=== PATIENT | male | born 1995 | race Two or more races ===

== ENCOUNTER 2017-11-11 11:01 | Emergency (ER) | payer SELFPAY ==
[2017-11-11 11:25] VITALS: BP 149/93
--- NOTE | 2017-11-11 11:27 | ER Document Report ---
ED Medical Screen (RME) - General Chief Complaint: Depression Stated Complaint: STD CHECK Time Seen by Provider: 11/11/17 11:07 Mode of Arrival: Ambulatory Information source: Patient Notes: 22-year-old male presents with depression, anxiety and concern for STD. I have greeted and performed a rapid initial assessment of this patient. A comprehensive ED assessment and evaluation of the patient, analysis of test results and completion of medical decision making process we will be contacted by additional ED providers. PHYSICAL EXAMINATION: GENERAL: Well-appearing, well-nourished and in no acute distress. HEAD: Atraumatic, normocephalic. EYES: Pupils equal round extraocular movements intact, conjunctiva are normal. ENT: Nares patent NECK: Normal range of motion LUNGS: No respiratory distress Musculoskeletal: Normal range of motion NEUROLOGICAL: Normal speech, normal gait. PSYCH: Normal mood, normal affect. SKIN: Warm, Dry, normal turgor, no rashes or lesions noted. TRAVEL OUTSIDE OF THE [place] IN LAST 30 DAYS: No - HPI Onset: Other Onset/Duration: Intermittent Quality of pain: No pain Associated Symptoms: None Exacerbated by: Denies Relieved by: Denies Similar symptoms previously: Yes Recently seen / treated by doctor: No - Related Data Smoking: Cigarettes Frequency of alcohol use: Occasional Drug Abuse: Marijuana, Prescription drugs Allergies/Adverse Reactions: No Known Allergies Allergy (Verified 11/11/17 11:24) Past Medical History - Social History Chew tobacco use (# tins/day): No Frequency of alcohol use: None Drug Abuse: Marijuana, Prescription drugs Renal/ Medical History: Denies: Hx Peritoneal Dialysis Past Surgical History: Reports: Hx Orthopedic Surgery - left leg Physical Exam - Vital signs Vitals: Temp Pulse Resp BP Pulse Ox 98.6 F 97 16 149/93 H 100 11/11/17 11:24 11/11/17 11:24 11/11/17 11:24 11/11/17 11:24 11/11/17 11:24 Course - Vital Signs Vital signs: Temp Pulse Resp BP Pulse Ox 98.6 F 97 16 149/93 H 100 11/11/17 11:24 11/11/17 11:24 11/11/17 11:24 11/11/17 11:24 11/11/17 11:24 Doctor's Discharge - Discharge Referrals: SHRUTHI ROSE MD [Primary Care Provider] - Follow up as needed
[2017-11-11 12:28] LABS: APPEARANCE,URINE SLIGHTLY-CLOUDY; BILIRUBIN,URINE NEGATIVE (NEGATIVE); COLOR,URINE YELLOW; GLUCOSE, URINE NEGATIVE (NEGATIVE); KETONES,URINE TRACE mg/dL (NEGATIVE); LEUKOCYTE ESTERASE,URINE NEGATIVE (NEGATIVE); NITRITE,URINE NEGATIVE (NEGATIVE); PROTEIN,URINE 30 mg/dL (NEGATIVE); URINE SPECIFIC GRAVITY 1.025
[2017-11-11 12:29] LABS: ABSOLUTE BASOPHILS # (AUTO) 0.1 10^3/uL (0.0-0.2); ABSOLUTE EOSINOPHILS # (AUTO) 0.2 10^3/uL (0.0-0.6); ABSOLUTE LYMPHOCYTES (AUTO) 2.4 10^3/uL (0.5-4.7); ABSOLUTE MONOCYTES (AUTO) 0.7 10^3/uL (0.1-1.4); ABSOLUTE NEUT (AUTO) 4.9 10^3/uL (1.7-8.2); BASOPHILS % (AUTO) 0.9 % (0-2); HEMATOCRIT 46.1 % (37.9-51.0); HEMOGLOBIN 15.6 g/dL (13.5-17.0); LYMPHOCYTES % (AUTO) 29.4 % (13-45); MEAN CORPUSCULAR HEMOGLOBIN 28.3 pg (27.0-33.4); MEAN CORPUSCULAR HGB CONC 33.8 g/dL (32.0-36.0); MEAN CORPUSCULAR VOLUME 84 fl (80-97); MONOCYTES % (AUTO) 8.2 % (3-13); PLATELET COUNT 253 10^3/uL (150-450); RED BLOOD COUNT 5.51 10^6/uL (4.35-5.55); RED CELL DISTRIBUTION WIDTH 13.3 % (11.5-14.0); SEGMENTED NEUTROPHILS % (AUTO) 59.5 % (42-78); TOTAL CELLS COUNTED % (AUTO) 100 %; WHITE BLOOD COUNT 8.2 10^3/uL (4.0-10.5)
[2017-11-11 12:42] LABS: URINE BARBITURATES SCREEN NEGATIVE; URINE BENZODIAZEPINES SCREEN NEGATIVE; URINE COCAINE SCREEN NEGATIVE; URINE MARIJUANA (THC) SCREEN UNCONFIRMED POSITIVE; URINE METHADONE SCREEN NEGATIVE; URINE PHENCYCLIDINE SCREEN NEGATIVE
[2017-11-11 12:48] LABS: ALANINE AMINOTRANSFERASE 30 U/L (21-72); ALBUMIN 4.5 g/dL (3.5-5.0); ALKALINE PHOSPHATASE 78 U/L (38-126); ANION GAP 11 (5-19); ASPARTATE AMINO TRANSFERASE 29 U/L (17-59); BILIRUBIN,DIRECT 0.2 mg/dL (0.0-0.4); BILIRUBIN,TOTAL 0.9 mg/dL (0.2-1.3); BLOOD UREA NITROGEN 15 mg/dL (7-20); CALCIUM 9.7 mg/dL (8.4-10.2); CARBON DIOXIDE 27 mmol/L (22-30); CHLORIDE 104 mmol/L (98-107); GLUCOSE 81 mg/dL (75-110); POTASSIUM 4.8 mmol/L (3.6-5.0); TOTAL PROTEIN 7.6 g/dL (6.3-8.2)
[2017-11-11 12:50] LABS: ACETAMINOPHEN < 10 ug/mL (10-30); ALCOHOL < 10 mg/dL (NONE DETECTED); SALICYLATE < 1.0 mg/dL (2.0-20.0)
[2017-11-11 13:55] LABS: CHLAM PCR NOT DETECTED (NOT DETECT); GON PCR NOT DETECTED (NOT DETECT)
--- NOTE | 2017-11-11 15:43 | ER Document Report ---
ED General - General Chief Complaint: Depression Stated Complaint: STD CHECK Time Seen by Provider: 11/11/17 11:07 Mode of Arrival: Ambulatory Information source: Patient Notes: This is a 22-year-old man that presents to the emergency room with concerns for an STD. He is states that this is made him anxious. He does have a history of depression. He denies any homicidal or suicidal ideations at this time. He denies any cough, fever, abdominal pain, rash or penile discharge. TRAVEL OUTSIDE OF THE [place] IN LAST 30 DAYS: No - HPI Onset: Just prior to arrival Onset/Duration: Sudden Quality of pain: No pain Severity: None Pain Level: Denies Associated symptoms: denies: Chest pain, Fever, Shortness of breath Exacerbated by: Denies Relieved by: Denies Similar symptoms previously: No Recently seen / treated by doctor: No - Related Data Allergies/Adverse Reactions: No Known Allergies Allergy (Verified 11/11/17 11:24) Past Medical History - General Information source: Patient - Social History Smoking Status: Current Every Day Smoker Cigarette use (# per day): Yes - 1 pack per day Chew tobacco use (# tins/day): No Frequency of alcohol use: None Drug Abuse: Marijuana, Prescription drugs Lives with: Family Family History: None Patient has suicidal ideation: No Patient has homicidal ideation: No - Medical History Medical History: Negative Renal/ Medical History: Denies: Hx Peritoneal Dialysis Past Surgical History: Reports: Hx Orthopedic Surgery - left leg Review of Systems - Review of Systems Constitutional: denies: Chills, Fever EENT: No symptoms reported Cardiovascular: No symptoms reported Respiratory: No symptoms reported Gastrointestinal: No symptoms reported Genitourinary: No symptoms reported Male Genitourinary: No symptoms reported Musculoskeletal: No symptoms reported Skin: No symptoms reported Hematologic/Lymphatic: No symptoms reported Neurological/Psychological: No symptoms reported Physical Exam - Vital signs Vitals: Temp Pulse Resp BP Pulse Ox 98.6 F 97 16 149/93 H 100 11/11/17 11:24 11/11/17 11:24 11/11/17 11:24 11/11/17 11:24 11/11/17 11:24 Notes: Physical exam: GENERAL: 22-year-old man, alert and oriented 3, no acute distress HEAD: Atraumatic, normocephalic. EYES: Pupils equal round and reactive to light, extraocular movements intact, sclera anicteric, conjunctiva are normal. ENT: TMs normal, nares patent, oropharynx clear without exudates. Moist mucous membranes. NECK: Normal range of motion, supple without obvious mass or JVD. LUNGS: Breath sounds clear to auscultation bilaterally and equal. No wheezes rales or rhonchi. HEART: Regular rate and rhythm without murmurs, rubs or gallops. ABDOMEN: Soft, normoactive bowel sounds. No tenderness to palpation. No guarding, no rebound. No masses appreciated. EXTREMITIES: Normal range of motion, no pitting or edema. No clubbing or cyanosis. NEUROLOGICAL: Cranial nerves II through XII grossly intact. Normal speech, moving all extremities. PSYCH: Does appear little anxious. No suicidal/homicidal SKIN: Warm, Dry, normal turgor, no rashes or lesions noted. Course - Vital Signs Vital signs: Temp Pulse Resp BP Pulse Ox 98.6 F 97 16 149/93 H 100 11/11/17 11:24 11/11/17 11:24 11/11/17 11:24 11/11/17 11:24 11/11/17 11:24 - Laboratory Result Diagrams: 11/11/17 11:50 11/11/17 11:50 Laboratory results interpreted by me: 11/11/17 11/11/17 11:50 12:10 Urine Protein 30 H Urine Ketones TRACE H Urine Urobilinogen 4.0 H Salicylates < 1.0 L Acetaminophen < 10 L - EKG Interpretation by Sc Rate: Normal Rhythm: NSR - EKG shows normal sinus rhythm with a ventricular rate of 68, no acute ST-T wave changes Discharge - Discharge Clinical Impression: Anxiety Condition: Stable Disposition: HOME, SELF-CARE Additional Instructions: As we discussed, your labs look quite good today. There is no evidence of STDs. I would like you to follow-up with the health department if you have any future concerns first STD. As always, the best protection is to use condoms. [facility] - Follow up as needed (This is the number of the health department)
--- NOTE | 2017-11-11 16:25 | EKG REPORT ---
SEVERITY:- NORMAL ECG - SINUS RHYTHM : Confirmed by: Billy Murrieta MD 11-Nov-2017 16:24:53
--- NOTE | 2017-11-12 19:07 | PSYCHOLOGICAL NOTE ---
Psych Note - Psych Note Psych Note: Reason for Consult: Depression and Anxiety Patient came in for an STD check and shared with the nurse he was anxious about his symptoms. Patient reports that he has been itching and burning for about 2 months now but noticed blood in his stool over the last few days and that is what prompted him to visit the ER. Pt. denies that he is homicidal or suicidal. He is still involved with the GF who may be infected as well. Patient is not interested in counseling at this time. This Clinician gave patient resource information to the [facility] and the [facility]. Patient is alert and oriented to person, place, time and circumstance. Mood is dysphoric. Conversational speech is within normal rate and tone. Eye Contact is good. Attention and concentration are good. Insight, judgment and impulse control are good. Diagnosis 300.02 (F41.1) Generalized Anxiety Disorder Impression/Plan: Patient is cleared from acute pyschiatric services. Patient is not suicidal. Patient is not homicidal. Clinician discussed appropriate coping skills with the patient and was able to identify ways to make healthy decisions in the future. Patient was given local resources for the the [facility] and the [facility]. Dr. Du was consulted and the care management of this patient; attending physician is in agreement with recommendations and disposition.
== END 2017-11-11 15:48 | disposition home or self-care (01) ==
LOC: ER 11:01
DX: F41.1 Generalized anxiety disorder (principal); F17.210 Nicotine dependence, cigarettes, uncomplicated
CPT/HCPCS: 36415; 80053; 80307; 81001; 85025; 87491; 87591; 93005; 93010; 99284

== ENCOUNTER 2017-11-24 20:03 | Emergency (ER) | payer SELFPAY ==
--- NOTE | 2017-11-24 20:26 | ER Document Report ---
ED Medical Screen (RME) - General Chief Complaint: Laceration Stated Complaint: HAND/ARM INJURY Time Seen by Provider: 11/24/17 20:20 Notes: 22-year-old male. No past medical history was angry. Did a elbow slam into a car window to take out some frustration. Piece of glass fell down and cut him on the right distal forearm/wrist area. Actively bleeding. No significant pain except for palpation in the distal wrist area. I have greeted and performed a rapid initial assessment of this patient. A comprehensive ED assessment and evaluation of the patient, analysis of test results and completion of the medical decision making process will be conducted by additional ED providers. TRAVEL OUTSIDE OF THE [place] IN LAST 30 DAYS: No - Related Data Allergies/Adverse Reactions: No Known Allergies Allergy (Verified 11/24/17 20:20) Past Medical History Renal/ Medical History: Denies: Hx Peritoneal Dialysis Past Surgical History: Reports: Hx Orthopedic Surgery - left leg
--- NOTE | 2017-11-24 20:47 | RADIOLOGY REPORT (SQ) ---
EXAM DESCRIPTION: WRIST RIGHT 2 VIEWS COMPLETED DATE/TIME: 11/24/2017 8:38 pm REASON FOR STUDY: laceration and pain after punching window COMPARISON: None. NUMBER OF VIEWS: Two views. TECHNIQUE: AP and lateral radiographic images acquired of the right wrist. LIMITATIONS: None. FINDINGS: MINERALIZATION: Normal. BONES: No acute fracture or dislocation. No worrisome bone lesions. Normal alignment. SOFT TISSUES: No soft tissue swelling. No foreign body. OTHER: No other significant finding. IMPRESSION: NEGATIVE STUDY OF THE RIGHT WRIST. NO RADIOGRAPHIC EVIDENCE OF ACUTE INJURY. TECHNICAL DOCUMENTATION: JOB ID: [id number] [employer]- All Rights Reserved Reading location - [email or web address]
[2017-11-25] MEDS ORDERED: LIDOCAINE 1% INJ-PF (10 MG/ML) 30 ML SDV INJ ONE (02:05)
--- NOTE | 2017-11-25 02:09 | ER Document Report ---
ED General - General Chief Complaint: Laceration Stated Complaint: HAND/ARM INJURY Time Seen by Provider: 11/24/17 20:20 Notes: Patient is a 22-year-old male without past medical history who presents after sustaining a 5 cm laceration over his right wrist. This occurred when he punched a glass window to a car when he was angry. He notes a dull, stinging, constant pain to the affected area. Nothing improves or worsens the pain. No additional injuries. Last tetanus shot greater than 5 years ago. He has not seen his primary care doctor regarding today's concerns. He denies any weakness , numbness or limited range of motion of his hand. He is right-hand dominant. TRAVEL OUTSIDE OF THE [place] IN LAST 30 DAYS: No - Related Data Allergies/Adverse Reactions: No Known Allergies Allergy (Verified 11/24/17 20:20) Past Medical History - General Information source: Patient - Social History Smoking Status: Current Every Day Smoker Frequency of alcohol use: None Drug Abuse: Marijuana Lives with: Parents Family History: Reviewed & Not Pertinent Patient has suicidal ideation: No Patient has homicidal ideation: No Renal/ Medical History: Denies: Hx Peritoneal Dialysis Past Surgical History: Reports: Hx Orthopedic Surgery - left leg Review of Systems - Review of Systems Notes: C Constitutional: Negative for fever. Eyes: Negative for visual changes. ENT: Negative for facial injury Cardiovascular: Negative for chest injury. Respiratory: Negative for shortness of breath. Gastrointestinal: Negative for abdominal injury. Genitourinary: Negative for genital injury Musculoskeletal: Negative for back injury. Skin: Positive for laceration/abrasions. Neurological: Negative for head injury. Physical Exam - Vital signs Vitals: Temp Pulse Resp BP Pulse Ox 98.8 F 99 16 151/80 H 99 11/24/17 20:20 11/24/17 20:20 11/24/17 20:20 11/24/17 20:20 11/24/17 20:20 Interpretation: Hypertensive Notes: PHYSICAL EXAMINATION: GENERAL: Well-appearing, well-nourished and in no acute distress. HEAD: Atraumatic, normocephalic. EYES: sclera anicteric, conjunctiva are normal. ENT: Moist mucous membranes. NECK: Normal range of motion LUNGS: Normal work of breathing HEART: 2+ radial pulses bilaterally, capillary refill less than 1 second in all digits of the right hand EXTREMITIES: no pitting or edema. No cyanosis. RMU motor and sensory distribution intact in the right hand. Full flexion and extension against resistance in all digits of the right hand at the PIP, MCP and DIP. NEUROLOGICAL: No focal neurological deficits. Moves all extremities spontaneously and on command. PSYCH: Normal mood, normal affect. SKIN: Warm, Dry, normal turgor, there is a 5 cm flap type laceration overlying the volar surface of the right wrist Course - Re-evaluation Re-evalutation: 11/25/17 02:06 Patient presents with a 5 cm flap type laceration over the right wrist. RMU motor and sensory to be intact. Full flexion-extension of all digits right hand against resistance. Wound was irrigated and closed without consultation. X-ray confirmed no presence of foreign body. Tetanus was updated. At this time will discharge with return precautions and follow-up recommendations. Verbal discharge instructions given a the bedside and opportunity for questions given. Medication warnings reviewed. Patient is in agreement with this plan and has verbalized understanding of return precautions and the need for primary care follow-up in the next 24-72 hours. - Vital Signs Vital signs: Temp Pulse Resp BP Pulse Ox 98.8 F 99 16 151/80 H 99 11/24/17 20:20 11/24/17 20:20 11/24/17 20:20 11/24/17 20:20 11/24/17 20:20 - Diagnostic Test Radiology reviewed: Image reviewed, Reports reviewed Radiology results interpreted by me: 11/25/17 03:17 Right wrist x-ray: No acute fracture or retained foreign body Procedures - Laceration/Wound Repair Right Wrist Wound length (cm): 5 Wound's Depth, Shape: Superficial, Flap Laceration pre-procedure: Sterile PPE donned Anesthetic type: 1% Lidocaine w/epi Volume Anesthetic (mLs): 3 Wound explored: Clean Irrigated w/ Saline (mLs): 500 Wound Debrided: Minimal Wound Repaired With: Sutures Suture Size/Type: 5:0, Prolene Number of Sutures: 8 Layer Closure?: No Post-procedure wound care: Sterile dressing applied Post-procedure NV exam normal: Yes Complications: No Discharge - Discharge Clinical Impression: Laceration of right wrist Qualifiers: Encounter type: initial encounter Qualified Code(s): S61.511A - Laceration without foreign body of right wrist, initial encounter Condition: Good Disposition: HOME, SELF-CARE Additional Instructions: Please return to your primary doctor, the ED, or an urgent care in 7 days for suture removal. Return immediately if you develop spreading redness around the wound, pus from the wound, worsening pain, or a fever of >100.4. Keep the area clean and dry. Wash gently with soap and water twice daily and cover with antibiotic ointment.
[2017-11-25] MEDS ORDERED: LIDOCAINE 1.5%/EPINEPHRINE INJ-PF 30 ML SDV INJ ONE (02:48)
[2017-11-25] MEDS ORDERED: LIDOCAINE 1%/EPINEPHRINE INJ 20 ML VIAL INJ ONE (02:50)
[2017-11-25] MEDS ORDERED: DIPH/PERTUSS(ACELL)/TETANUS VAC/PF 0.5 ML SYR (>=10YO) IM ONE (03:15)
[2017-11-25 03:39] VITALS: BP 124/78
== END 2017-11-25 03:37 | disposition home or self-care (01) ==
LOC: ER 20:03
DX: S61.511A Laceration without foreign body of right wrist, initial encounter (principal); W25.XXXA Contact with sharp glass, initial encounter; F17.200 Nicotine dependence, unspecified, uncomplicated; Z23 Encounter for immunization
CPT/HCPCS: 99283; 90471; 73100; 90715; 12002; J3490 ×2